=== PATIENT | female | born 1985 | race Two or more races ===

== ENCOUNTER 2018-08-05 00:39 | Emergency (ER) | payer OTHER ==
[~2018-08-05] VITALS: Ht 167.6 cm; Wt 63.0 kg
== END 2018-08-05 10:00 | disposition home or self-care (01) ==
LOC: ER 00:39
DX: O46.8X1 Other antepartum hemorrhage, first trimester (principal); O20.0 Threatened abortion; Z34.01 Encounter for supervision of normal first pregnancy, first trimester